=== PATIENT | male | born 1965 ===

== ENCOUNTER 2025-01-09 11:54 | Inpatient (IN) | payer MEDICAID ==
[2025-01-09] MEDS ORDERED: Sodium Chloride 0.9% 10 ML Syringe FLUSH PRN (12:25)
[2025-01-09] MEDS ORDERED: Ondansetron 4 MG Tab.DIS PO PRN (12:25)
[2025-01-09] MEDS: Furosemide 100 MG/10 ML SDV IVPUSH ONE (13:28)
[2025-01-10 07:23] LABS: BASOPHILS ABSOLUTE AUTO 0.04 10^3/uL (0.00-0.50); BASOPHILS PERCENT AUTO 0.4 % (0-1); EOSINOPHILS ABSOLUTE AUTO 0.24 10^3/uL (0.00-1.50); EOSINOPHILS PERCENT AUTO 2.5 % (0-6); IMMATURE GRAN ABSOLUTE AUTO 0.02 10^3/uL (0.00-0.49); IMMATURE GRAN PERCENT AUTO 0.2 % (0.0-4.9); LYMPHOCYTES ABSOLUTE AUTO 2.66 10^3/uL (0.60-5.00); LYMPHOCYTES PERCENT AUTO 27.8 % (24-44); MONOCYTES ABSOLUTE AUTO 1.23 10^3/uL (0.00-1.50); MONOCYTES PERCENT AUTO 12.8 % (0-10); NEUTROPHILS ABSOLUTE AUTO 5.39 x10^3/uL (1.80-8.00); NEUTROPHILS PERCENT AUTO 56.3 % (41-71); PLATELET COUNT,PLT 195 10^3/uL (150-400); RED BLOOD CELL COUNT 3.03 x10^6/uL (4.50-6.00); WHITE BLOOD CELL COUNT,WBC 9.6 10^3/uL (4.0-11.0)
[2025-01-10 07:25] LABS: ALANINE AMINOTRANSFERASE,ALT 6.0 U/L (12-78); ASPARTATE AMNIOTRANSFERASE,AST 24.0 U/L (15-37); BILIRUBIN TOTAL 2.1 mg/dL (0.0-1.0); BLOOD UREA NITROGEN,BUN 7.0 mg/dL (7-18); CARBON DIOXIDE,CO2 27.0 mmol/L (21-32); CHLORIDE,CL 103.0 mEq/L (98-106); CREATININE 0.7 mg/dL (0.7-1.3); EST CRCL DRUG DOSING (CG) 125.24 mL/min; GLUCOSE RANDOM 94.0 mg/dL (75-99); POTASSIUM,K 3.1 mEq/L (3.5-5.0); PROTEIN TOTAL,TP 5.3 g/dL (6.4-8.2); SODIUM,NA 137.0 mEq/L (136-145)
[2025-01-10 07:33] LABS: ESTIMATED GFR 105.0 mL/min (>=60)
[2025-01-10] MEDS: Potassium Chloride 20 MEQ Tab.ER PO SCH (08:58)
[2025-01-10] MEDS: Furosemide 40 MG/4 ML VIAL IVPUSH SCH (08:58)
[2025-01-10] MEDS: Multivitamins with Iron/Calcium/Folic Acid/Minerals Tab PO SCH (12:04)
[2025-01-11 07:17] LABS: ALANINE AMINOTRANSFERASE,ALT 9.0 U/L (12-78); ASPARTATE AMNIOTRANSFERASE,AST 26.0 U/L (15-37); BILIRUBIN TOTAL 1.7 mg/dL (0.0-1.0); BLOOD UREA NITROGEN,BUN 7.0 mg/dL (7-18); CARBON DIOXIDE,CO2 27.0 mmol/L (21-32); CHLORIDE,CL 103.0 mEq/L (98-106); CREATININE 0.7 mg/dL (0.7-1.3); EST CRCL DRUG DOSING (CG) 125.24 mL/min; GLUCOSE RANDOM 98.0 mg/dL (75-99); POTASSIUM,K 3.3 mEq/L (3.5-5.0); PROTEIN TOTAL,TP 5.5 g/dL (6.4-8.2); SODIUM,NA 136.0 mEq/L (136-145)
[2025-01-11 07:24] LABS: BASOPHILS ABSOLUTE AUTO 0.05 10^3/uL (0.00-0.50); BASOPHILS PERCENT AUTO 0.5 % (0-1); EOSINOPHILS ABSOLUTE AUTO 0.42 10^3/uL (0.00-1.50); EOSINOPHILS PERCENT AUTO 4.1 % (0-6); IMMATURE GRAN ABSOLUTE AUTO 0.02 10^3/uL (0.00-0.49); IMMATURE GRAN PERCENT AUTO 0.2 % (0.0-4.9); LYMPHOCYTES ABSOLUTE AUTO 3.07 10^3/uL (0.60-5.00); LYMPHOCYTES PERCENT AUTO 30.1 % (24-44); MONOCYTES ABSOLUTE AUTO 1.16 10^3/uL (0.00-1.50); MONOCYTES PERCENT AUTO 11.4 % (0-10); NEUTROPHILS ABSOLUTE AUTO 5.47 x10^3/uL (1.80-8.00); NEUTROPHILS PERCENT AUTO 53.7 % (41-71); PLATELET COUNT,PLT 203 10^3/uL (150-400); RED BLOOD CELL COUNT 3.08 x10^6/uL (4.50-6.00); WHITE BLOOD CELL COUNT,WBC 10.2 10^3/uL (4.0-11.0)
[2025-01-11 07:30] LABS: ESTIMATED GFR 105.0 mL/min (>=60)
[2025-01-12 07:44] LABS: BASOPHILS ABSOLUTE AUTO 0.06 10^3/uL (0.00-0.50); BASOPHILS PERCENT AUTO 0.6 % (0-1); EOSINOPHILS ABSOLUTE AUTO 0.48 10^3/uL (0.00-1.50); EOSINOPHILS PERCENT AUTO 4.7 % (0-6); IMMATURE GRAN ABSOLUTE AUTO 0.02 10^3/uL (0.00-0.49); IMMATURE GRAN PERCENT AUTO 0.2 % (0.0-4.9); LYMPHOCYTES ABSOLUTE AUTO 3.08 10^3/uL (0.60-5.00); LYMPHOCYTES PERCENT AUTO 29.9 % (24-44); MONOCYTES ABSOLUTE AUTO 1.18 10^3/uL (0.00-1.50); MONOCYTES PERCENT AUTO 11.4 % (0-10); NEUTROPHILS ABSOLUTE AUTO 5.49 x10^3/uL (1.80-8.00); NEUTROPHILS PERCENT AUTO 53.2 % (41-71); PLATELET COUNT,PLT 201 10^3/uL (150-400); RED BLOOD CELL COUNT 3.21 x10^6/uL (4.50-6.00); WHITE BLOOD CELL COUNT,WBC 10.3 10^3/uL (4.0-11.0)
[2025-01-12 08:35] LABS: ALANINE AMINOTRANSFERASE,ALT 13.0 U/L (12-78); ASPARTATE AMNIOTRANSFERASE,AST 32.0 U/L (15-37); BILIRUBIN TOTAL 1.9 mg/dL (0.0-1.0); BLOOD UREA NITROGEN,BUN 7.0 mg/dL (7-18); CARBON DIOXIDE,CO2 28.0 mmol/L (21-32); CHLORIDE,CL 102.0 mEq/L (98-106); CREATININE 0.6 mg/dL (0.7-1.3); EST CRCL DRUG DOSING (CG) 146.11 mL/min; GLUCOSE RANDOM 90.0 mg/dL (75-99); POTASSIUM,K 3.7 mEq/L (3.5-5.0); PROTEIN TOTAL,TP 5.8 g/dL (6.4-8.2); SODIUM,NA 136.0 mEq/L (136-145)
[2025-01-12 08:36] LABS: ESTIMATED GFR 110.0 mL/min (>=60)
[2025-01-13 09:02] LABS: BASOPHILS ABSOLUTE AUTO 0.06 10^3/uL (0.00-0.50); BASOPHILS PERCENT AUTO 0.6 % (0-1); EOSINOPHILS ABSOLUTE AUTO 0.47 10^3/uL (0.00-1.50); EOSINOPHILS PERCENT AUTO 4.4 % (0-6); IMMATURE GRAN ABSOLUTE AUTO 0.02 10^3/uL (0.00-0.49); IMMATURE GRAN PERCENT AUTO 0.2 % (0.0-4.9); LYMPHOCYTES ABSOLUTE AUTO 2.79 10^3/uL (0.60-5.00); LYMPHOCYTES PERCENT AUTO 26.1 % (24-44); MONOCYTES ABSOLUTE AUTO 1.10 10^3/uL (0.00-1.50); MONOCYTES PERCENT AUTO 10.3 % (0-10); NEUTROPHILS ABSOLUTE AUTO 6.24 x10^3/uL (1.80-8.00); NEUTROPHILS PERCENT AUTO 58.4 % (41-71); PLATELET COUNT,PLT 190 10^3/uL (150-400); RED BLOOD CELL COUNT 3.19 x10^6/uL (4.50-6.00); WHITE BLOOD CELL COUNT,WBC 10.7 10^3/uL (4.0-11.0)
[2025-01-13 09:15] LABS: ALANINE AMINOTRANSFERASE,ALT 11.0 U/L (12-78); ASPARTATE AMNIOTRANSFERASE,AST 26.0 U/L (15-37); BILIRUBIN TOTAL 1.9 mg/dL (0.0-1.0); BLOOD UREA NITROGEN,BUN 8.0 mg/dL (7-18); CARBON DIOXIDE,CO2 28.0 mmol/L (21-32); CHLORIDE,CL 101.0 mEq/L (98-106); CREATININE 0.7 mg/dL (0.7-1.3); EST CRCL DRUG DOSING (CG) 125.24 mL/min; GLUCOSE RANDOM 108.0 mg/dL (75-99); POTASSIUM,K 3.6 mEq/L (3.5-5.0); PROTEIN TOTAL,TP 5.7 g/dL (6.4-8.2); SODIUM,NA 136.0 mEq/L (136-145)
[2025-01-13 09:21] LABS: ESTIMATED GFR 105.0 mL/min (>=60)
[2025-01-14 08:11] LABS: BASOPHILS ABSOLUTE AUTO 0.07 10^3/uL (0.00-0.50); BASOPHILS PERCENT AUTO 0.7 % (0-1); EOSINOPHILS ABSOLUTE AUTO 0.54 10^3/uL (0.00-1.50); EOSINOPHILS PERCENT AUTO 5.3 % (0-6); IMMATURE GRAN ABSOLUTE AUTO 0.04 10^3/uL (0.00-0.49); IMMATURE GRAN PERCENT AUTO 0.4 % (0.0-4.9); LYMPHOCYTES ABSOLUTE AUTO 3.21 10^3/uL (0.60-5.00); LYMPHOCYTES PERCENT AUTO 31.3 % (24-44); MONOCYTES ABSOLUTE AUTO 1.23 10^3/uL (0.00-1.50); MONOCYTES PERCENT AUTO 12.0 % (0-10); NEUTROPHILS ABSOLUTE AUTO 5.16 x10^3/uL (1.80-8.00); NEUTROPHILS PERCENT AUTO 50.3 % (41-71); PLATELET COUNT,PLT 211 10^3/uL (150-400); RED BLOOD CELL COUNT 3.15 x10^6/uL (4.50-6.00); WHITE BLOOD CELL COUNT,WBC 10.3 10^3/uL (4.0-11.0)
[2025-01-14 08:15] LABS: ALANINE AMINOTRANSFERASE,ALT 11.0 U/L (12-78); ASPARTATE AMNIOTRANSFERASE,AST 28.0 U/L (15-37); BILIRUBIN TOTAL 1.5 mg/dL (0.0-1.0); BLOOD UREA NITROGEN,BUN 11.0 mg/dL (7-18); CARBON DIOXIDE,CO2 27.0 mmol/L (21-32); CHLORIDE,CL 102.0 mEq/L (98-106); CREATININE 0.9 mg/dL (0.7-1.3); EST CRCL DRUG DOSING (CG) 97.41 mL/min; GLUCOSE RANDOM 83.0 mg/dL (75-99); POTASSIUM,K 3.8 mEq/L (3.5-5.0); PROTEIN TOTAL,TP 5.5 g/dL (6.4-8.2); SODIUM,NA 136.0 mEq/L (136-145)
[2025-01-14 08:17] LABS: ESTIMATED GFR 97.0 mL/min (>=60)
== END 2025-01-15 14:20 | disposition home or self-care (01) | DRG 433 ==
LOC: CC.MS 11:54 → UNDOADMIN 11:54 → CC.MS 12:25
PROVIDERS: ADMIT Nurse Practitioner Family; ATTEND Nurse Practitioner Family
PROC: 0W9G3ZZ Drainage of Peritoneal Cavity, Percutaneous Approach (ICD-10-PCS; principal; 2025-01-09)
PROC: 0W9G30Z Drainage of Peritoneal Cavity with Drainage Device, Percutaneous Approach (ICD-10-PCS; 2025-01-12)
DX: K70.31 Alcoholic cirrhosis of liver with ascites (principal); J90 Pleural effusion, not elsewhere classified; R09.02 Hypoxemia; K72.90 Hepatic failure, unspecified without coma; I95.9 Hypotension, unspecified; K59.00 Constipation, unspecified; Z79.899 Other long term (current) drug therapy; Z88.0 Allergy status to penicillin
CPT/HCPCS: 36415; 49083; 80053; 82140; 83735; 85025; 87070; 97110-GP; 97161-GP; 99223; 99232; 99233; 99239; A9270-GY; J1650; J1938; J7040; P9047